=== PATIENT | female | born 1935 | race Caucasian/White ===

== ENCOUNTER 2021-06-24 18:22 | Observation (INO) | payer MEDICARE, MEDICAID ==
[~2021-06-24] VITALS: Ht 160 cm; Wt 84.5 kg
[2021-06-24 19:23] LABS: ARTERIAL BLD GAS O2 SATURATION 94.6 % (92-100); ARTERIAL BLD GAS TCO2 CT 24.9; ARTERIAL BLOOD GAS BASE EXCESS -0.7 (-2-2); ARTERIAL BLOOD GAS HCO3 23.7 meq/L (22-26); ARTERIAL BLOOD GAS PCO2 38.4 mmHg (35-45); ARTERIAL BLOOD GAS PO2 70.2 mmHg (80-100); ARTERIAL BLOOD GAS pH 7.41 (7.35-7.45)
[2021-06-24 19:31] LABS: BASO # 0.1 K/mm3 (0.0-0.2); BASO % 0.5 % (0.0-2.0); EOS # 0.2 K/mm3 (0.0-0.7); EOS % 1.7 % (0.0-4.0); GRAN # 9.5 K/mm3 (1.4-6.5); GRAN % 70.3 % (42.2-75.2); HEMATOCRIT 48.1 % (37.0-47.0); HEMOGLOBIN 15.9 g/dl (12.5-16.0); LYMPH # 2.6 K/mm3 (1.2-3.4); LYMPH % 19.2 % (20.0-51.0); MEAN CELL VOLUME 92 fl (80.0-100.0); MEAN CORPUSCULAR HEMOGLOBIN 31 pg (27-31); MEAN CORPUSCULAR HGB CONC 33 g/dl (33.0-37.0); MEAN PLATELET VOLUME 12.4 fl (7.4-10.4); MONO % 7.5 % (1.7-9.3); PLATELET COUNT 284 K/mm3 (130-400); RED BLOOD COUNT 5.21 M/mm3 (4.10-5.30); REDCELL DISTRIBUTION WIDTH-CV 13.7 % (11.5-14.5)
[2021-06-24 20:11] LABS: ALANINE AMINOTRANSFERASE 25 U/L (0-55); ALBUMIN 3.5 gm/dL (3.4-4.8); ALKALINE PHOSPHATASE 125 U/L (40-150); ANION GAP 9 mmol/L (7-16); AST,SGOT 36 U/L (5-34); BILIRUBIN,TOTAL 0.5 mg/dL (0.2-1.2); BLOOD UREA NITROGEN 22 mg/dL (10-20); CALCIUM 9.5 mg/dL (8.4-10.2); CARBON DIOXIDE 24 mmol/L (23-31); CHLORIDE 103 mmol/L (98-107); CREATININE, serum 0.89 mg/dL (0.57-1.11); GLUCOSE 157 mg/dL (70-99); SODIUM 136 mmol/L (136-145); TOTAL PROTEIN 7.1 gm/dL (6.2-8.1)
[2021-06-24 20:21] LABS: TROPONIN-I < 0.010 ng/mL (0.00-0.033)
[2021-06-25] MEDS ORDERED: VITAMIN D31000 I1 PO (00:07)
[2021-06-25] MEDS ORDERED: ALDACTONE 25MG25 M1 PO (00:08)
[2021-06-25] MEDS ORDERED: ASPIRIN 81M81 MG/TA2 PO (00:09)
[2021-06-25] MEDS ORDERED: CRESTOR20 MG PO (00:09)
[2021-06-25] MEDS ORDERED: HCTZ 25MG TAB25 MG PO ×2 (00:10→00:12)
[2021-06-25] MEDS ORDERED: INDERAL60 MG PO (00:11)
[2021-06-25] MEDS ORDERED: TYLENOL 500MG500 MG PO (00:11)
[2021-06-25 01:08] VITALS: BP 126/59; PULSE 74; TEMP 97.9
--- NOTE | 2021-06-25 01:15 | NUR ---
PT ADMIT FROM ER PER CHRIS W BELONGINGS. PT STATES FLU IS GOING AROUND [facility] AND SHE HAS HAD SOA INCREASING WORSE LAST FEW DAYS. AT BASE IS ON RA, 2L CURRENTLY FOR HYPOXIA. ASSESSMENT OBTAINED. MED REC VERIFIED PER PT AND FAX MED LIST. IS DNR. POC DISCUSSED.ORIENTATED TO ROOM AND CALL LIGHT. WALKER PROVIDED AND KNOWS TO CALL FOR ASST WHEN GETTING UP.
[2021-06-25 03:28] VITALS: BP 145/68; PULSE 77; TEMP 97.9
[2021-06-25 05:38] LABS: COLLECTION METHOD CLEAN CATCH
[2021-06-25 05:44] LABS: MUCOUS Present (NOT PRESENT); PH 6 (5-8); SQUAMOUS EPITHELIAL 0-2 /hpf (0-10); URINE APPEARANCE Clear (CLEAR/HAZY); URINE BACTERIA None Seen /hpf (NONE SEEN); URINE BILIRUBIN Negative (NEGATIVE); URINE BLOOD Negative (NEGATIVE); URINE COLOR Yellow (YELLOW); URINE GLUCOSE Negative (NEGATIVE); URINE KETONE Negative (NEGATIVE); URINE LEUKOCYTE ESTERASE Negative (NEGATIVE); URINE NITRATE Negative (NEGATIVE); URINE PROTEIN(semi-quant) Negative (NEGATIVE); URINE RBC 0-2 /hpf (0-2); URINE UROBILINOGEN Negative (NEGATIVE)
[2021-06-25 06:09] LABS: BASO # 0.1 K/mm3 (0.0-0.2); BASO % 0.4 % (0.0-2.0); EOS # 0.2 K/mm3 (0.0-0.7); EOS % 1.3 % (0.0-4.0); GRAN # 7.5 K/mm3 (1.4-6.5); GRAN % 66.8 % (42.2-75.2); HEMATOCRIT 47.9 % (37.0-47.0); HEMOGLOBIN 15.7 g/dl (12.5-16.0); LYMPH # 2.5 K/mm3 (1.2-3.4); LYMPH % 22.3 % (20.0-51.0); MEAN CELL VOLUME 95 fl (80.0-100.0); MEAN CORPUSCULAR HEMOGLOBIN 31 pg (27-31); MEAN CORPUSCULAR HGB CONC 33 g/dl (33.0-37.0); MEAN PLATELET VOLUME 9.8 fl (7.4-10.4); MONO # 0.9 K/mm3 (0.1-0.6); MONO % 8.3 % (1.7-9.3); PLATELET COUNT 267 K/mm3 (130-400); RED BLOOD COUNT 5.06 M/mm3 (4.10-5.30); REDCELL DISTRIBUTION WIDTH-CV 13.7 % (11.5-14.5)
[2021-06-25 06:32] LABS: CALCIUM 9.6 mg/dL (8.4-10.2); CREATININE, serum 0.83 mg/dL (0.57-1.11); POTASSIUM 4.1 mmol/L (3.5-4.5)
[2021-06-25 08:06] VITALS: BP 134/74; PULSE 68; TEMP 98
[2021-06-25] MEDS ORDERED: NYSTATIN POWDER30 GM TOP (08:37)
[2021-06-25] MEDS ORDERED: INDERAL LA 60MG60 MG PO (08:39)
[2021-06-25 08:42] VITALS: BP 134/74; PULSE 92; TEMP 97.9
--- NOTE | 2021-06-25 11:46 | NUR ---
Radio Station Manager collaborated with Hospitalist who advised patient is ready for discharge back to [facility]. SW met with patient and had patient's daughter, Odessa (ph#[phone]) to discuss discharge planning. Patient lives at [facility] and sees Dr. Garcia for primary care. Patient states she uses a rollator for ambulation and reports independence with ADLS. Patient is and has two children: Odessa and Ceferino. Patient to discharge today and both patient and Odessa are in agreement. MOUNIKA collaborated with Vandana at [facility] and they will bean picker patient this afternoon. MOUNIKA faxed updates and discharge orders. [facility] Plan[facility]
== END 2021-06-25 11:45 | disposition home or self-care (01) ==
LOC: COL.ER 18:22 → MEDICAL 22:37
PROVIDERS: Nurse Practitioner; Student in an Organized Health Care Education/Training Program; ADMIT Student in an Organized Health Care Education/Training Program
DX: J96.01 Acute respiratory failure with hypoxia (principal); I11.0 Hypertensive heart disease with heart failure; I50.30 Unspecified diastolic (congestive) heart failure; D72.829 Elevated white blood cell count, unspecified; K44.9 Diaphragmatic hernia without obstruction or gangrene; E87.5 Hyperkalemia; E78.5 Hyperlipidemia, unspecified; J11.1 Influenza due to unidentified influenza virus with other respiratory manifestations; Z99.81 Dependence on supplemental oxygen; Z79.899 Other long term (current) drug therapy; Z20.822 Contact with and (suspected) exposure to COVID-19
CPT/HCPCS: G0378; J1650; Q9967

== ENCOUNTER 2022-04-04 12:50 | Emergency (ER) | payer MEDICARE, MEDICAID ==
[~2022-04-04] VITALS: Ht 162.6 cm; Wt 82.3 kg
[~2022-04-04 12:50] MED LIST: ALDACTONE 25MG25 M1 PO; ASPIRIN 81M81 MG/TA2 PO; CRESTOR20 MG PO; HCTZ 25MG TAB25 MG PO; INDERAL LA 60MG60 MG PO; INDERAL60 MG PO; NYSTATIN POWDER30 GM TOP; TYLENOL 500MG500 MG PO; VITAMIN D31000 I1 PO
[2022-04-04 14:20] VITALS: BP 137/72; PULSE 80; TEMP 97.1
== END 2022-04-04 14:30 | disposition home or self-care (01) ==
LOC: COL.ER 12:50
DX: S09.90XA Unspecified injury of head, initial encounter (principal); S00.03XA Contusion of scalp, initial encounter; M25.561 Pain in right knee; W01.190A Fall on same level from slipping, tripping and stumbling with subsequent striking against furniture, initial encounter; Y92.009 Unspecified place in unspecified non-institutional (private) residence as the place of occurrence of the external cause

== ENCOUNTER 2022-12-16 17:57 | Outpatient (CLI) | payer MEDICARE, MEDICAID ==
[2022-12-16] MEDS ORDERED: TYLENOL 500MG500 MG PO (18:05)
[2022-12-16] MEDS ORDERED: LOTRIMIN15 GM TOP (18:06)
[2022-12-16] MEDS ORDERED: VOLTAREN GEL 1%1 TU TP (18:07)
[2022-12-16] MEDS ORDERED: HCTZ 25MG TAB25 MG PO (18:08)
[2022-12-16] MEDS ORDERED: MULTIPLE VITAMI1 TA5 PO (18:08)
[2022-12-16] MEDS ORDERED: NYAMYC100000 U/G TP (18:10)
[2022-12-16] MEDS ORDERED: ZOLOFT 50MG50 MG PO (18:12)
== END 2022-12-16 18:01 | disposition home or self-care (01) ==
LOC: EUO 17:57
DX: I82.402 Acute embolism and thrombosis of unspecified deep veins of left lower extremity (principal)
CPT/HCPCS: J1650